=== PATIENT | female | born 1950 | race Caucasian/White ===

== ENCOUNTER 2019-05-14 10:25 | Inpatient (IN) | payer MEDICARE, BC ==
[~2019-05-14] VITALS: Ht 162.6 cm; Wt 72.1 kg
[2019-05-14 10:57] LABS: BASOPHILS # (AUTO) 0.1 /CMM (0.0-0.2); BASOPHILS % (AUTO) 1.2 % (0.0-2.0); EOSINOPHILS % (AUTO) 5.7 % (0.0-6.0); HEMATOCRIT 38 % (33-45); HEMOGLOBIN 12.7 g/dL (11.5-14.8); LYMPHOCYTES # (AUTO) 2.4 /CMM (0.8-4.8); LYMPHOCYTES % (AUTO) 32.1 % (20.0-44.0); MEAN CORPUSCULAR HGB CONC 34 g/dl (31.0-36.0); MEAN CORPUSCULAR VOLUME 91 fL (82-100); MONOCYTES # (AUTO) 0.5 /CMM (0.1-1.30); MONOCYTES % (AUTO) 7.1 % (2.0-12.0); NEUTROPHILS # (AUTO) 4.1 /CMM (1.8-8.9); NEUTROPHILS % (AUTO) 53.9 % (43.0-81.0); PLATELET COUNT (AUTO) 196 /CMM (150-450); RED BLOOD CELL COUNT(AUTO) 4.17 MIL/uL (4.0-5.2); WHITE BLOOD COUNT (AUTO) 7.6 K/uL (4.3-11.0)
[2019-05-14] MEDS ORDERED: ASPIRIN 325 MG TABLET PO ONE (11:00)
[2019-05-14 11:07] LABS: ALANINE AMINOTRANSFERASE 28 U/L (12-78); ALBUMIN 3.9 g/dL (3.4-5.0); ALKALINE PHOSPHATASE 69 U/L (46-116); ASPARTATE AMINOTRANSFERASE 33 U/L (15-37); BILIRUBIN,DIRECT 0.1 mg/dL (0.0-0.2); BILIRUBIN,TOTAL 0.5 mg/dL (0.2-1.0); CALCIUM, SERUM 9.2 mg/dL (8.5-10.1); CARBON DIOXIDE 25 mmol/L (21-32); CHLORIDE 97 mmol/L (98-107); CREATININE 1.1 mg/dL (0.6-1.3); GLUCOSE 72 mg/dL (74-106); POTASSIUM 3.9 mmol/L (3.5-5.1); SODIUM SERUM 132 mmol/L (136-145); TOTAL PROTEIN, SERUM 7.3 g/dL (6.4-8.2); UREA NITROGEN, BLOOD 13 mg/dL (7-18)
[2019-05-14] MEDS ORDERED: ASPIRIN 325 MG TABLET ONE (11:09)
[2019-05-14] MEDS ORDERED: ALBU8.5H8 PO (11:09)
[2019-05-14] MEDS ORDERED: OMEP20CA11 PO (11:09)
[2019-05-14] MEDS ORDERED: TELM20TA8 PO (11:09)
[2019-05-14] MEDS ORDERED: BUPR150T10 PO (11:09)
[2019-05-14] MEDS ORDERED: ROSU5TAB13 PO (11:09)
[2019-05-14] MEDS ORDERED: OLME5TAB6 PO (11:09)
[2019-05-14] MEDS ORDERED: LEVO50TA66 PO (11:09)
[2019-05-14] MEDS ORDERED: QUIN324C PO (11:10)
[2019-05-14] MEDS ORDERED: NITROGLYCERIN 0.4 MG/TAB BOTTLE SL PRN (14:30)
[2019-05-14] MEDS ORDERED: ONDANSETRON HCL/PF 4 MG/2 ML VIAL IVP PRN (14:30)
[2019-05-14] MEDS ORDERED: ACETAMINOPHEN 325 MG TABLET PO PRN (14:30)
[2019-05-14] MEDS ORDERED: MAG HYDROX/AL HYDROX/SIMETH 30 ML UDC PO PRN (14:30)
[2019-05-14] MEDS ORDERED: HYDROCODONE/APAP 5/325MG 1 EACH TABLET PO PRN (14:30)
[2019-05-14] MEDS ORDERED: Z GUARD REMEDY 2 OZ OINT TP PRN (14:30)
[2019-05-14] MEDS ORDERED: MAGNESIUM HYDROXIDE 30 ML UDC PO PRN (14:30)
[2019-05-14] MEDS ORDERED: ZOLPIDEM TARTRATE 5 MG TABLET PO PRN (14:30)
[2019-05-14] MEDS ORDERED: MORPHINE SULFATE INJ 2 MG/ML DISP.SYRIN IV PRN (14:30)
[2019-05-14] MEDS ORDERED: PANTOPRAZOLE 40 MG TABLET.DR PO SCH (16:00)
[2019-05-14 16:29] VITALS: BP 167/78
[2019-05-14] MEDS ORDERED: CT SWABBABLE VALVE TRANS SET 1 EA INFUS.SET MC ONE (17:30)
[2019-05-14] MEDS ORDERED: IOHEXOL-350 100 ML VIAL IV ONE ×2 (17:30→18:49)
[2019-05-14] MEDS ORDERED: IV NS 0.9% 250 ML IV ONE (17:31)
[2019-05-14] MEDS: METOPROLOL TARTRATE 50 MG TABLET PO SCH (17:38)
[2019-05-14] MEDS ORDERED: METOPROLOL TARTRATE INJ 5 MG/5 ML AMPUL ONE ×2 (18:26→18:55)
[2019-05-14] MEDS ORDERED: METOPROLOL TARTRATE INJ 5 MG/5 ML AMPUL IVP ONE (18:30)
[2019-05-14] MEDS ORDERED: IV NS 0.9% 500 ML IV ONE (18:30)
[2019-05-14] MEDS ORDERED: NITROGLYCERIN 0.4 MG/TAB BOTTLE SL ONE (18:30)
[2019-05-14] MEDS ORDERED: ALBUTEROL FS 2.5 MG/0.5 ML VIAL.NEB NEB PRN (19:30)
[2019-05-14 20:00] VITALS: BP 142/80
[2019-05-14] MEDS ORDERED: ATORVASTATIN 10 MG TABLET PO SCH (22:00)
[2019-05-15] VITALS: BP 134/76
[2019-05-15 04:00] VITALS: BP 138/78
[2019-05-15 06:33] LABS: BASOPHILS # (AUTO) 0.1 /CMM (0.0-0.2); EOSINOPHILS % (AUTO) 8.3 % (0.0-6.0); HEMATOCRIT 37 % (33-45); HEMOGLOBIN 12.4 g/dL (11.5-14.8); LYMPHOCYTES # (AUTO) 2.6 /CMM (0.8-4.8); MEAN CORPUSCULAR HGB CONC 33 g/dl (31.0-36.0); MEAN CORPUSCULAR VOLUME 92 fL (82-100); MONOCYTES # (AUTO) 0.5 /CMM (0.1-1.30); MONOCYTES % (AUTO) 7.3 % (2.0-12.0); NEUTROPHILS # (AUTO) 3.4 /CMM (1.8-8.9); NEUTROPHILS % (AUTO) 47.4 % (43.0-81.0); PLATELET COUNT (AUTO) 182 /CMM (150-450); RED BLOOD CELL COUNT(AUTO) 4.03 MIL/uL (4.0-5.2); WHITE BLOOD COUNT (AUTO) 7.1 K/uL (4.3-11.0)
[2019-05-15] MEDS: METOPROLOL TARTRATE 50 MG TABLET PO SCH ×4 (06:39→18:00)
[2019-05-15 06:52] LABS: CALCIUM, SERUM 9.3 mg/dL (8.5-10.1); MAGNESIUM 1.8 mg/dL (1.8-2.4); PHOSPHORUS 4.2 mg/dL (2.5-4.9); POTASSIUM 3.9 mmol/L (3.5-5.1)
[2019-05-15 07:21] LABS: THYROID STIMULATING HORMONE 6.065 uIU/mL (0.358-3.74)
[2019-05-15] MEDS ORDERED: PANTOPRAZOLE 40 MG TABLET.DR PO SCH (07:30)
[2019-05-15] MEDS ORDERED: LEVOTHYROXINE SODIUM 50 MCG TABLET PO SCH (07:30)
[2019-05-15 08:00] VITALS: BP 135/75
[2019-05-15] MEDS ORDERED: REGADENOSON 0.4 MG/5 ML DISP.SYRIN IVP ONE (08:00)
[2019-05-15] MEDS ORDERED: VALSARTAN 80 MG TABLET PO SCH (09:00)
[2019-05-15] MEDS ORDERED: QUININE SULFATE 324 MG CAPSULE PO SCH (09:00)
[2019-05-15] MEDS ORDERED: LOSARTAN POTASSIUM 25 MG TABLET PO SCH ×3 (09:00)
[2019-05-15] MEDS ORDERED: ASPI-1152 PO (10:52)
[2019-05-15] MEDS ORDERED: PANT40TA2 PO (10:52)
[2019-05-15] MEDS ORDERED: METO100T7 PO (10:52)
[2019-05-15] MEDS ORDERED: VALS80TA2 PO (10:52)
[2019-05-15] MEDS: buPROPion SR 150 MG TABLET.ER PO SCH ×2 (13:02→13:03)
[2019-05-15] MEDS: ASPIRIN EC 81 MG TABLET.DR PO SCH ×2 (13:02→13:03)
[2019-05-15 16:00] VITALS: BP 142/84
[2019-05-15 18:00] VITALS: BP 142/84
== END 2019-05-15 19:00 | disposition home or self-care (01) | DRG 303 ==
LOC: ER 10:27 → TELE1 13:17 → TELE 14:01 → MED 05-15 09:48
DX: I25.10 Atherosclerotic heart disease of native coronary artery without angina pectoris (principal); E87.1 Hypo-osmolality and hyponatremia; M19.90 Unspecified osteoarthritis, unspecified site; M72.0 Palmar fascial fibromatosis [Dupuytren]; I10 Essential (primary) hypertension; E03.9 Hypothyroidism, unspecified; E78.5 Hyperlipidemia, unspecified; M79.7 Fibromyalgia; M81.0 Age-related osteoporosis without current pathological fracture
CPT/HCPCS: 36415; 71045-TC; 75574; 80048-TC; 80061-TC; 80076-TC; 83735-TC; 84100-TC; 84443-TC; 84484-TC; 85025-TC; 87081-TC; 93307-TC; 97116-TC; 97530-TC; A9502; G0378; J2785; J3490; J7050; Q9967